=== PATIENT | female | born 1940 | race Caucasian/White ===

== ENCOUNTER 2017-05-09 06:29 | Outpatient (CLI) | payer MEDICARE, OTHER ==
[~2017-05-09] VITALS: Ht 165.1 cm; Wt 108.8 kg
--- NOTE | ~2017-05-09 | CATH ---
Cardiac Diagnostic Report Demographics Patient Name NORY ENRIQUEZ Gender Female L Date of 1940 Age 77 year(s) Patient Number [id number] Date of Study 05/09/2017 Visit Number [id number] Room Number G6399 [place] [id number] Ht 165.1 cm Wt 108.8 kg Referring Sorin Adams Germain Primary Physician Physician PA Performing Chanell Chawla MD Secondary Physician Physician Diagnostic Chanell Chawla MD Assisting Physician Physician Interventional Physician Hand Box Folder Physician Findings and Conclusions Diagnostic Findings and Conclusion 1 vessel CAD. Moderate pulmonary HTN. Diagnostic Recommendations Medical therapy. Procedure Description The patient was brought to the diagnostic cardiac catheterization-EP laboratory in the fasting, non-sedated state. Informed consent was obtained in the written and verbal form after the risks and benefits were explained. The patient had no further questions and agreed to proceed. The planned puncture-incision site(s) were shaved and prepped with ChloraPrep and draped in the usual sterile manner. Conscious sedation, supplemental oxygen, and pain control medications were delivered by a registered nurse under physician guidance. Surface ECG rhythm, blood pressure measurement, and pulse oximetry were monitored throughout the procedure. Arterial access. The access site was infiltrated with lidocaine. The vessel was entered with the Seldinger technique. A sheath was advanced into the vessel and used for catheter placement. Venous access. The access site was infiltrated with 2% lidocaine. The vessel was entered with the Seldinger technique. A sheath was advanced into the vessel and used for catheter placement. Selective left coronary angiography. A catheter was advanced into the left coronary vessel ostium under Fluoroscopic guidance. Contrast was injected by hand. Images were obtained in multiple projections. Selective right coronary angiography. A catheter was advanced into the right coronary vessel ostium under fluoroscopic guidance. Contrast was injected by hand. Images were obtained in multiple projections. Left heart catheterization. A catheter was advanced across the aortic valve to the left ventricle under fluoroscopic guidance. Resting hemodynamics were obtained. Right heart catheterization. A Saco Denilson catheter was successfully advanced to the right atrium, right ventricle, pulmonary artery, and pulmonary artery wedge position under fluoroscopic guidance. Resting hemodynamics were obtained. Measurements included pressures, arterial and venous oxygen saturation samples, and cardiac output. The Saco was removed without difficulty. Arterial and Venous hemostasis was achieved. The patient was transferred to a regular nursing floor via cart accompanied by a nurse. The patient left the laboratory in stable condition. Diagnostic Cath Status: Elective Procedure Procedure Type Diagnostic procedure:Angiography:, Right and Left Heart Cath, Coronary Angios Indications: Shortness of breath and Unstable angina. The procedure was explained in detail to the patient. Risks, complications and alternative treatments were reviewed. Written consent was obtained. Medications Reviewed with Patient prior to Procedure. Angiographic Findings Dominance: Right Cardiac Arteries and Lesion Findings LMCA: Normal (0% Stenosis).Large. LAD: Medium. Diagonal 1 small, okay. Lesion on Mid LAD: 30% stenosis . LCx: Normal (0% Stenosis).Large, normal. OM 1 large, normal. RCA: Large, dominant. Patent stents with diffuse 50% ISR. PL medium, normal. PDA medium, normal. Coronary Tree Procedure Data Procedure Date Date: 05/09/2017Start: 09:27 AMEnd: 10:40 AM Entry Locations - Retrograde Percutaneous access was performed through the Right Femoral artery. A 6 Fr sheath was inserted. Hemostasis was successfully obtained using Manual Compression. Closure Comments: Pressure held by Romi Rodriguez RN for 20 minutes.. - Retrograde Percutaneous access was performed through the Left Femoral artery (Primary location). A 6 Fr sheath was inserted. Hemostasis was successfully obtained using Angio-Seal STS PLUS ([facility] [facility]). Closure Comments: Deployed by RT Radha.. - Antegrade Percutaneous access was performed through the Left Femoral vein. A 7 Fr sheath was inserted. Hemostasis was successfully obtained using Manual Compression. Closure Comments: Pressure held for 10 minutes by Romi Rodriguez RN.. Procedure Medications Order and Administration + + +-------+------+ !Time !Medication !Dosage !Route ! + + +-------+------+ !05/09/2017 09:25 AM !Fentanyl !50 mcg !I.V. ! + + +-------+------+ !05/09/2017 10:08 AM !Fentanyl !50 mcg !I.V. ! + + +-------+------+ Devices Used - A6 Fr. BS Angled Pigtail Diag. Catheterwas used for:LV Pressures. - A6 Fr. BS JL 4 Diag. Catheterwas used for:Left coronary angiography. - A6 Fr. BS JR 4 Diag. Catheterwas used for:Right coronary angiography. Contrast Material - Isovue 34382 ml Fluoroscopy Time: Diagnostic: 6:24 minutes. Total: 6:24 minutes. Fluoroscopy Dose: Diagnostic: 1014 mGy. Total: 1014 mGy. Estimated Blood Loss: 5 ml. Medical History Performed Procedures and Imaging Results - Stress testing with SPECT MPIwas performed. Results were: Negative. Allergies - Other:(Warfarin). Risk Factors The patient risk factors include:prior PCI on 07/30/2003;hypertension, orally-treated diabetes mellitus, last creatinine: 1.5 mg/dl, creatinine clearance: 52.23 ml/min, dyslipidemia, former tobacco use, prior heart failure and prior AR . Admission Data Admission Date: 05/09/2017 Admission Time: 06:29 AM Admit Source: Other Insurance Payors: Medicare. Admission Medications + +------+------+ + + + + !Medication !Dosage!Times !Last !Last !Administered !Comments ! ! ! !Per !Delivery !Delivery ! ! ! ! ! !Day !Date !Time ! ! ! + +------+------+ + + + + !Aspirin ! ! ! ! !Yes ! ! !(any) ! ! ! ! ! ! ! + +------+------+ + + + + !Beta Edson! ! ! ! !Yes ! ! !(any) ! ! ! ! ! ! ! + +------+------+ + + + + !Clopidogrel ! ! ! ! !Yes ! ! + +------+------+ + + + + !RIVER ! ! ! ! !Yes ! ! !Inhibitor ! ! ! ! ! ! ! !(any) ! ! ! ! ! ! ! + +------+------+ + + + + !Statin (any)! ! ! ! !Yes ! ! + +------+------+ + + + + Clinical Evaluation Leading to Procedure - The patient's CAD presentation was assessed as: Unstable angina. - The patient's anginal syndrome during the past two weeks was assessed as: Class III according to the [place] Cardiovascular Society Classification System (CCS). Anti-anginal medications were prescribed during the past two weeks. The medication is: Beta Blockers. - The patient has been in a state of heart failure within the past two weeks. - The patient's heart failure status was assessed as NYHA Class III. - The reason for the patient's labor relations consultant visit is evaluation of cardiomyopathy and/or evaluation of left ventricular systolic dysfunction. Hemodynamics Condition: Rest O2 Consumption: Estimated: 187.70Heart Rate: 64 bpm Oxygen Saturation +--------+-----+----+ +---+ + !Location!pCO2 !pO2 !% Saturation !Hgb!O2 Content ! +--------+-----+----+ +---+ + !IVC ! ! !51 ! ! ! +--------+-----+----+ +---+ + !RA ! ! !63 ! ! ! +--------+-----+----+ +---+ + !AO ! ! !96.9 ! ! ! +--------+-----+----+ +---+ + !PA ! ! !66.7 ! ! ! +--------+-----+----+ +---+ + Pressures (mmHg) +-----+ + !Site !Pressure ! +-----+ + !RA !14/11 (7) ! +-----+ + !RV !41/6 ,9 ! +-----+ + !PCW !16/ (16) ! +-----+ + !PA !47/20 (27) ! +-----+ + !LV !128/7 ,10 ! +-----+ + !LV !80/49 ,52 ! +-----+ + !LV !134/6 ,67 ! +-----+ + !AO !119/85 (88) ! +-----+ + Cardiac Output + + +-----+ !Time !Cardiac Output (l/min) !Use ! + + +-----+ !05/09/2017 09:57 AM !3.53 !True ! + + +-----+ !05/09/2017 09:58 AM !3.01 !True ! + + +-----+ !05/09/2017 09:59 AM !3.25 !True ! + + +-----+ !05/09/2017 09:59 AM !3.62 !True ! + + +-----+ !05/09/2017 10:00 AM !3.32 !True ! + + +-----+ Cardiac Output +-------+ + + + !Method !CO (l/min) !CI (l/min/m2) !SV (ml) ! +-------+ + + + !Henry !3.31 !1.5 !51.99 ! +-------+ + + + !Thermal!3.346 !1.6 !54.67 ! +-------+ + + + Valve Gradients and Areas + +--------+--------+--------+---------+ + + !Valve !Peak !Mean !Area !Index !Flow !Source ! + +--------+--------+--------+---------+ + + !Aortic !44 !34 !0.46 !0.21 !117.75 !Henry ! + +--------+--------+--------+---------+ + + !Aortic !44 !34 !0.46 !0.21 !119.03 !Thermal ! + +--------+--------+--------+---------+ + + Shunts Oxygen Values O2 Capacity 187.68 O2 Consumption 187.7 Flows (l/min) Shunts Qs 2.95 Qe/Qp 0.89 Left to Right 0.36 10.88 % Qp 3.31 Qp/Qs 1.12 Qe 2.95 Vascular Resistance (dynes x sec x cm-5) + +-----+-----+----+----+---------+-------+ !CO method !TSVR !SVR !TPVR!PVR !TPVR/TSVR!PVR/SVR! + +-----+-----+----+----+---------+-------+ !Henry !26.7 !24.54!8.16!3.47!0.31 !0.14 ! + +-----+-----+----+----+---------+-------+ !Thermal !26.41!24.27!8.07!3.44!0.31 !0.14 ! + +-----+-----+----+----+---------+-------+ !Qp or Qs !29.96!27.53!8.16!3.47!0.27 !0.13 ! + +-----+-----+----+----+---------+-------+ Discharge Data Discharge Date: 05/09/2017 Hospital Status: Outpatient Signatures dtt: Denton Lua (cardio) dtd: 05/09/17 0927 Physician Self Edit
[~2017-05-09 06:29] MED LIST: ALDACTONE25 MG PO; ASPIRIN325 MG PO; COLACE100 MG PO; COQ-10100 MG PO; DEMADEX20 MG PO; ENALAPRIL MALEAT5 MG PO; GLUCOTROL XL2.5 MG PO; KCL - MICRO-K10 MEQ PO; LEVOTHROID(SYN75 MCG PO; LIPITOR20 M1 PO; LOPRESSOR25 MG PO; PLAVIX75 MG PO; SOTALOL160 MG PO
[2017-05-09] MEDS ORDERED: NITROGLYCERIN0.2 MG TRANS (13:03)
== END 2017-05-09 17:20 | disposition disaster alternative care site (69) ==
LOC: GPCU 06:29 → GCAT 06:29
PROC: 4A023N8 Measurement of Cardiac Sampling and Pressure, Bilateral, Percutaneous Approach (ICD-10-PCS; principal; 2017-05-09)
PROC: B216YZZ Fluoroscopy of Right and Left Heart using Other Contrast (ICD-10-PCS; 2017-05-09)
DX: R06.02 Shortness of breath (principal)
CPT/HCPCS: C1760; C1769; J1644; J2001; J2250; J3010; J7030; J7060